=== PATIENT | female | born 1995 | race Two or more races ===

== ENCOUNTER 2019-05-23 19:00 | Emergency (ER) | payer MEDICAID ==
[~2019-05-23] VITALS: Ht 152.4 cm; Wt 63.0 kg
[2019-05-23 19:03] VITALS: BP 119/83
[2019-05-23 19:24] LABS: URINE HCG NEGATIVE (NEG)
[2019-05-23 19:30] LABS: CLARITY,URINE SLIGHTLY CLOUDY (Clear); COLOR,URINE YELLOW (Yellow); GLUCOSE, URINE NEGATIVE (Neg); KETONES,URINE NEGATIVE (Neg); LEUKOCYTE ESTERASE ,URINE NEGATIVE (Neg); NITRITES, URINE NEGATIVE (Neg); OCCULT BLOOD,URINE NEGATIVE (Neg); PROTEIN,URINE NEGATIVE (Neg); UROBILINOGEN,URINE 0.2 E.U/dL (0.2-1.0)
[2019-05-23 19:31] LABS: UA COLLECTION TYPE CLN CATCH MIDSTREAM
[2019-05-23] MEDS ORDERED: acetaminophen 325mg tablet PO ONE (19:45)
[2019-05-23 19:47] LABS: AMORPHOUS URATES 2+; BACTERIA,URINE NONE SEEN /HPF (Neg); MUCUS STRANDS FEW /LPF (Neg); RBC,URINE NONE SEEN /HPF (0-2); SQUAMOUS EPITHELIAL CELL,UR FEW /LPF (FEW); WBC,URINE 0-4 /HPF (0-4)
== END 2019-05-23 20:09 | disposition home or self-care (01) ==
LOC: ER 19:01
DX: M54.5 Low back pain (principal); R30.9 Painful micturition, unspecified; F17.200 Nicotine dependence, unspecified, uncomplicated
CPT/HCPCS: 81001; 81025; 99283

== ENCOUNTER 2019-08-15 21:53 | Emergency (ER) | payer MEDICAID ==
[~2019-08-15] VITALS: Ht 152.4 cm; Wt 65.7 kg
[2019-08-15 23:12] VITALS: BP 108/61
== END 2019-08-15 23:14 | disposition home or self-care (01) ==
LOC: ER 21:54
DX: R07.9 Chest pain, unspecified (principal); R06.02 Shortness of breath; R42 Dizziness and giddiness
CPT/HCPCS: 71045; 93005; 99283

== ENCOUNTER 2019-12-06 14:31 | Emergency (ER) | payer MEDICAID ==
[~2019-12-06] VITALS: Ht 154.9 cm; Wt 68.0 kg
[2019-12-06] MEDS ORDERED: ondansetron/PF 4mg/2ml inj IV ONE (14:40)
[2019-12-06] MEDS ORDERED: normal saline 1000ML IV soln IVB ONE (14:40)
[2019-12-06] MEDS ORDERED: morphine 4 MG/ML inj SYRINge IV PRN (14:40)
[2019-12-06 15:14] LABS: BASOPHILS # (AUTO) 0.1 X10'3 (0-0.2); BASOPHILS % (AUTO) 0.7 % (0-1); EOSINOPHILS # (AUTO) 0.1 X10'3 (0-0.9); EOSINOPHILS % (AUTO) 1.3 % (0-6); HEMATOCRIT 37.1 % (35.0-45.0); HEMOGLOBIN 12.7 g/dl (12.0-16.0); LYMPHOCYTES # (AUTO) 2.7 X10'3 (1.1-4.8); LYMPHOCYTES % (AUTO) 34.6 % (21-51); MEAN CORPUSCULAR HEMOGLOBIN 31.2 PG (27.0-31.0); MEAN CORPUSCULAR HGB CONC 34.3 g/dL (33.0-36.5); MEAN CORPUSCULAR VOLUME 90.9 FL (78-98); MEAN PLATELET VOLUME 7.8 FL (7.4-10.4); MONOCYTES # (AUTO) 0.4 X10'3 (0-0.9); MONOCYTES % (AUTO) 5.8 % (2-12); NEUTROPHILS # (AUTO) 4.5 X10'3 (1.8-7.7); NEUTROPHILS % (AUTO) 57.6 % (42-75); PLATELET COUNT 227 X10'3 (140-440); RED BLOOD COUNT 4.08 X10'6 (4.20-5.60); RED CELL DISTRIBUTION WIDTH 13.4 % (11.5-14.5); WHITE BLOOD COUNT 7.8 X10'3 (4.5-11.0)
[2019-12-06 15:30] LABS: ALANINE AMINOTRANSFERASE 23 U/L (12-78); ALBUMIN 3.2 G/DL (3.4-5.0); ALBUMIN/GLOBULIN RATIO 0.9 (1.1-1.5); ALKALINE PHOSPHATASE 61 IU/L (46-116); ANION GAP 12 (8-16); ASPARTATE AMINO TRANSFERASE 21 U/L (10-37); BILIRUBIN,TOTAL 0.3 MG/DL (0.1-1.0); BLOOD UREA NITROGEN 4 MG/DL (7-18); BUN/CREATININE RATIO 7.7 (6.6-38.0); CALCIUM 8.9 MG/DL (8.5-10.1); CHLORIDE 106 MMOL/L (99-107); CREATININE 0.52 MG/DL (0.40-0.90); GLUCOSE 108 MG/DL (70-104); POTASSIUM 3.1 MMOL/L (3.5-5.1); SODIUM 137 MMOL/L (135-145); TOTAL CARBON DIOXIDE 19.4 MMOL/L (24-32); TOTAL PROTEIN 6.7 G/DL (6.4-8.2); eGFR > 90 ML/MIN
[2019-12-06 15:54] LABS: BETA HCG,QUANTITATIVE 17916 mIU/ml
[2019-12-06 15:56] LABS: CLARITY,URINE CLEAR (Clear); COLOR,URINE YELLOW (Yellow); GLUCOSE, URINE NEGATIVE (Neg); KETONES,URINE 15 mg/dl (Neg); LEUKOCYTE ESTERASE ,URINE TRACE (Neg); NITRITES, URINE NEGATIVE (Neg); OCCULT BLOOD,URINE NEGATIVE (Neg); PROTEIN,URINE NEGATIVE (Neg); UROBILINOGEN,URINE 0.2 E.U/dL (0.2-1.0)
[2019-12-06 15:59] LABS: UA COLLECTION TYPE CLN CATCH MIDSTREAM
[2019-12-06 16:00] LABS: BACTERIA,URINE FEW /HPF (Neg); MUCUS STRANDS FEW /LPF (Neg); RBC,URINE NONE SEEN /HPF (0-2); SQUAMOUS EPITHELIAL CELL,UR FEW /LPF (FEW); WBC,URINE 0-4 /HPF (0-4)
[2019-12-06] MEDS ORDERED: potassium Cl 20 mEq SR tablet PO STA (16:15)
[2019-12-06] MEDS ORDERED: famotidine 20mg tablet PO ONE (17:00)
[2019-12-06 17:14] VITALS: BP 103/62
== END 2019-12-06 17:13 | disposition home or self-care (01) ==
LOC: ER 14:32
DX: O00.01 Abdominal pregnancy with intrauterine pregnancy (principal); Z3A.18 18 weeks gestation of pregnancy; K80.20 Calculus of gallbladder without cholecystitis without obstruction; E87.6 Hypokalemia
CPT/HCPCS: 36415; 76700; 76805; 80053; 81001; 84702; 85025; 85610; 86900; 86901; 87088; 96374; 99285; J2405; J7030; 96361

== ENCOUNTER 2020-01-26 00:50 | Emergency (ER) | payer MEDICAID ==
[~2020-01-26] VITALS: Ht 152.4 cm; Wt 69.0 kg
[2020-01-26 00:56] VITALS: BP 124/71
--- NOTE | 2020-01-26 01:14 | NUR ---
heart tones heard at a rate of 140bpm. Pt indicated pain to pressure just below umbilicus.
[2020-01-26] MEDS ORDERED: normal saline 1000ML IV soln IVB ONE (02:00)
[2020-01-26 03:08] LABS: BASOPHILS % (AUTO) 0.4 % (0-1); EOSINOPHILS # (AUTO) 0.1 X10'3 (0-0.9); EOSINOPHILS % (AUTO) 1.1 % (0-6); HEMATOCRIT 33.7 % (35.0-45.0); HEMOGLOBIN 11.4 g/dl (12.0-16.0); LYMPHOCYTES # (AUTO) 2.3 X10'3 (1.1-4.8); LYMPHOCYTES % (AUTO) 22.6 % (21-51); MEAN CORPUSCULAR HEMOGLOBIN 30.4 PG (27.0-31.0); MEAN CORPUSCULAR HGB CONC 33.8 g/dL (33.0-36.5); MEAN CORPUSCULAR VOLUME 89.8 FL (78-98); MEAN PLATELET VOLUME 7.6 FL (7.4-10.4); MONOCYTES # (AUTO) 0.8 X10'3 (0-0.9); NEUTROPHILS % (AUTO) 67.9 % (42-75); PLATELET COUNT 244 X10'3 (140-440); RED BLOOD COUNT 3.75 X10'6 (4.20-5.60); RED CELL DISTRIBUTION WIDTH 12.9 % (11.5-14.5); WHITE BLOOD COUNT 10.3 X10'3 (4.5-11.0)
[2020-01-26 03:21] LABS: ALANINE AMINOTRANSFERASE 22 U/L (12-78); ALBUMIN/GLOBULIN RATIO 0.9 (1.1-1.5); ALKALINE PHOSPHATASE 85 IU/L (46-116); ANION GAP 10 (8-16); ASPARTATE AMINO TRANSFERASE 15 U/L (10-37); BILIRUBIN,TOTAL 0.2 MG/DL (0.1-1.0); BLOOD UREA NITROGEN 7 MG/DL (7-18); BUN/CREATININE RATIO 14.6 (6.6-38.0); CALCIUM 8.7 MG/DL (8.5-10.1); CHLORIDE 103 MMOL/L (99-107); CREATININE 0.48 MG/DL (0.40-0.90); GLUCOSE 85 MG/DL (70-104); POTASSIUM 3.2 MMOL/L (3.5-5.1); SODIUM 136 MMOL/L (135-145); TOTAL PROTEIN 6.5 G/DL (6.4-8.2); eGFR > 90 ML/MIN
[2020-01-26 04:12] LABS: CLARITY,URINE CLEAR (Clear); COLOR,URINE YELLOW (Yellow); GLUCOSE, URINE NEGATIVE (Neg); KETONES,URINE NEGATIVE (Neg); LEUKOCYTE ESTERASE ,URINE TRACE (Neg); NITRITES, URINE NEGATIVE (Neg); OCCULT BLOOD,URINE NEGATIVE (Neg); PROTEIN,URINE NEGATIVE (Neg); UROBILINOGEN,URINE 0.2 E.U/dL (0.2-1.0)
[2020-01-26 04:21] LABS: BACTERIA,URINE NONE SEEN /HPF (Neg); RBC,URINE NONE SEEN /HPF (0-2); SQUAMOUS EPITHELIAL CELL,UR FEW /LPF (FEW); UA COLLECTION TYPE CLN CATCH MIDSTREAM; WBC,URINE 0-4 /HPF (0-4)
== END 2020-01-26 05:34 | disposition home or self-care (01) ==
LOC: ER 00:51
DX: O26.892 Other specified pregnancy related conditions, second trimester (principal); R10.33 Periumbilical pain; N89.8 Other specified noninflammatory disorders of vagina; R30.0 Dysuria; R41.0 Disorientation, unspecified; Z3A.25 25 weeks gestation of pregnancy
CPT/HCPCS: 36415; 76805; 80053; 81001; 85025; 87088; 96360; 96361; 99284; J7030